=== PATIENT | male | born 1945 | race Caucasian/White ===

== ENCOUNTER 2017-08-09 07:54 | Emergency (ER) | payer MEDICARE, OTHER ==
[2017-08-09] MEDS ORDERED: Lidocaine 2% 20 ML MDV INFILT ONE (07:55)
[2017-08-09] MEDS ORDERED: Diphtheria,Pertussis(Acell),Tetanus Vaccine 0.5 ML SDV IM ONE (08:35)
[2017-08-09] MEDS ORDERED: Cephalexin 500 MG Cap PO ONE (08:35)
--- NOTE | 2017-08-09 08:38 | EDM.PDOC ---
ED HPI GENERAL MEDICAL PROBLEM - General Chief Complaint: Laceration Stated Complaint: RT THUMB Time Seen by Provider: 08/09/17 08:00 Source of Information: Reports: Patient History Limitations: Reports: No Limitations - History of Present Illness INITIAL COMMENTS - FREE TEXT/NARRATIVE: 72 y.o.w.m came to the ed after he injured hid r thumb at work ith a tool. Wound was initially bleeding. Pt did not loose any function, no N/V/D or any other acute medical issues. BP 137/67 pulse 76 Temp 36.8 Pulse ox 97% on RA Onset: Today Onset Date: 08/09/17 Onset Time: 06:00 Duration: Hour(s): Location: Reports: Upper Extremity, Right Quality: Reports: Ache Severity: Mild Improves with: Reports: Rest Worsens with: Reports: Movement Context: Reports: Trauma Right Pain Score (Numeric/FACES): 3 - Related Data Allergies Allergy/AdvReac Type Severity Reaction Status Date / Time No Known Allergies Allergy Verified 08/09/17 08:08 Home Meds: Home Meds Cephalexin [Keflex] 500 mg PO Q6HR #40 capsule 08/09/17 [Rx] Social & Family History - Tobacco Use Smoking Status *Q: Current Every Day Smoker Years of Tobacco use: 1 Packs/Tins Daily: 1 - Alcohol Use Number of Drinks Per Day: 3 - Recreational Drug Use Recreational Drug Use: No ED ROS GENERAL - Review of Systems Review Of Systems: See Below Constitutional: Reports: No Symptoms HEENT: Reports: No Symptoms Respiratory: Reports: No Symptoms Cardiovascular: Reports: No Symptoms Endocrine: Reports: No Symptoms GI/Abdominal: Reports: No Symptoms : Reports: No Symptoms Musculoskeletal: Reports: No Symptoms Skin: Reports: Wound (right thumb) Neurological: Reports: No Symptoms Psychiatric: Reports: No Symptoms Hematologic/Lymphatic: Reports: No Symptoms Immunologic: Reports: No Symptoms ED EXAM, SKIN/RASH Exam: See Below Exam Limited By: No Limitations General Appearance: Alert, WD/WN, Mild Distress Eye Exam: Bilateral Eye: Normal Inspection Ears: Normal External Exam Nose: Normal Inspection Throat/Mouth: Normal Inspection, Normal Lips Head: Atraumatic, Normocephalic Neck: Normal Inspection Respiratory/Chest: No Respiratory Distress, Lungs Clear, Normal Breath Sounds, No Accessory Muscle Use, Chest Non-Tender Cardiovascular: Normal Peripheral Pulses, Regular Rate, Rhythm, No Edema, No Gallop, No Murmur Peripheral Pulses: 1+: Radial (L) GI/Abdominal: Normal Bowel Sounds, Soft, Non-Tender (Male) Exam: Deferred Rectal (Males) Exam: Deferred Back Exam: Normal Inspection, Full Range of Motion Extremities: Normal Inspection, Normal Range of Motion, Non-Tender Neurological: Alert, Oriented, CN II-XII Intact, Normal Cognition, Normal Gait Psychiatric: Normal Affect, Normal Mood Skin: Wound/Incision (right thumb) Location, Skin: Upper Extremity, Right Lymphatic: No Adenopathy ED SKIN PROCEDURES - Laceration/Wound Repair Right Finger Lac/Wound length In cm: 3 (right thumb) Appearance: Superficial, Stellate, Irregular, Clean Distal NVT: Neuro & Vascular Intact, No Tendon Injury Anesthetic Type: Local Local Anesthesia - Lidocaine (Xylocaine): 2% Plain Local Anesthetic Volume: 3cc Skin Prep: Providone-Iodine (Betadine) Saline Irrigation (cc's): 5 Exploration/Debridement/Repair: Wound Explored, In a Bloodless Field, Explored to Base Closed with: Sutures Suture Size: 4-0 # of Sutures: 7 Suture Type: Interrupted Tetanus Status Addressed: Other (TD today) Complications: No Course - Vital Signs Text/Narrative:: 72 y.o.w.m came to the ed after he injured hid r thumb at work ith a tool. Wound was initially bleeding. Pt did not loose any function, no N/V/D or any other acute medical issues. BP 137/67 pulse 76 Temp 36.8 Pulse ox 97% on RA PE: Right thumb LAC Procedure: Please see not obove Impression: Right thumb LAC Tx: Wound repair, Keflex Reexam: Improved Plan: D/C with instructions Last Recorded V/S: Last Vital Signs Temp Pulse 78 08/09/17 08:00 Resp 16 08/09/17 08:00 BP 137/67 08/09/17 08:00 Pulse Ox 100 08/09/17 08:00 - Orders/Labs/Meds Orders: Active Orders 24 hr Category Date Time Status Vaccines to be Administered [RC] PER UNIT ROUTINE Care 08/09/17 08:36 Ordered Meds: Medications Discontinued Medications Generic Name Dose Route Start Last Admin Trade Name Freq PRN Reason Stop Dose Admin Cephalexin 500 mg 08/09/17 08:35 Keflex PO 08/09/17 08:36 ONETIME ONE Diphtheria/Tetanus/Acell Pertussis 0.5 ml 08/09/17 08:35 08/09/17 08:42 Adacel IM 08/09/17 08:36 0.5 ml .ONCE ONE Administration Departure - Departure Time of Disposition: 08:38 Disposition: Home, Self-Care 01 Condition: Good Clinical Impression: Laceration - Discharge Information Prescriptions: Cephalexin [Keflex] 500 mg PO Q6HR #40 capsule Referrals: Carlos A Sweeney MD [Primary Care Provider] - Forms: ED Department Discharge Additional Instructions: Please apply neosporoine to wound two time for 5 days, Keflex as recommended, wound check in 2 days suture removal in 1o days, please come back to the ed if your symptoms get worse acutely. - My Orders Last 24 Hours: My Active Orders 08/09/17 08:36 Vaccines to be Administered [RC] PER UNIT ROUTINE - Assessment/Plan Last 24 Hours: My Active Orders 08/09/17 08:36 Vaccines to be Administered [RC] PER UNIT ROUTINE
== END 2017-08-09 09:02 | disposition home or self-care (01) ==
LOC: FB.ED 07:54
DX: S61.011A Laceration without foreign body of right thumb without damage to nail, initial encounter (principal); F17.210 Nicotine dependence, cigarettes, uncomplicated; W27.8XXA Contact with other nonpowered hand tool, initial encounter; Y99.0 Civilian activity done for income or pay; Z23 Encounter for immunization
CPT/HCPCS: 12002; 90471; 90715; 99283; A9270

== ENCOUNTER 2020-02-14 07:51 | Day surgery (SDC) | payer MEDICARE, OTHER ==
[2020-02-14] MEDS ORDERED: Lidocaine 1% PF 2 ML SDV INJECT ONE (07:52)
[2020-02-14] MEDS ORDERED: Propofol 200 MG/20 ML SDV IV ONE (07:52)
[2020-02-14] MEDS ORDERED: Sodium Chloride 0.9% 10 ML Syringe FLUSH PRN (08:00)
[2020-02-14] MEDS: Lactated Ringers 1,000 ML IV SCH (08:00)
--- NOTE | 2020-02-14 09:36 | PCM.OPNOTE ---
- General Post-Op/Procedure Note Date of Surgery/Procedure: 02/14/20 Operative Procedure(s): c scope with hot loop snare, cold forcep biopys. tattoo of polyp base Findings: transverse colon polyp x2 (1 and 2 cm) rectal polyp x2 (0.5 and 1 cm) Pre Op Diagnosis: hematochezia Post-Op Diagnosis: transverse colon polyp x2 (1 and 2 cm). rectal polyp x2 (0.5 and 1 cm) Anesthesia Technique: MAC Primary Surgeon: Ayad Jarvis Anesthesia Provider: Miguel Angel Cartwright Pathology: transverse colon polyp x2 (1 and 2 cm) rectal polyp x2 (0.5 and 1 cm) Complications: None Condition: Good Free Text/Narrative:: see dicatation
--- NOTE | 2020-02-18 11:12 | OR ---
DATE OF OPERATION: 02/14/2020 SURGEON: Ayad Jarvis MD PROCEDURE PERFORMED: Colonoscopy with hot loop and cold snare biopsy as well as tattooing of biopsy site. PREOPERATIVE DIAGNOSIS: Bright red blood per rectum. POSTOPERATIVE DIAGNOSIS: Transverse colon polyps x2, rectal polyps x2, diverticulosis. INDICATIONS FOR PROCEDURE: This is a 74-year-old white male who has never had a colonoscopy, was referred with a history of some bright red blood per rectum, was offered and accepted colonoscopy. DESCRIPTION OF OPERATION: After an excellent IV sedation was administered, digital rectal exam was performed. No marked abnormality was noted. The flexible colonoscope was inserted and advanced to the cecum. The prep was excellent. Following findings were noted: Ascending colon, unremarkable. Transverse colon, in the mid transverse colon, 2 polyps, one approximately 8 mm in size and the other approximately 2 mm with a wide base were encountered. These were both biopsied with the hot loop snare. The base of the larger polyp was due to its size was tattooed with the Spot system. Remainder of the transverse colon was unremarkable. Descending colon, occasional diverticula. Sigmoid, mild diverticulosis. Rectum, 2 polyps biopsied with cold forceps and submitted in one container. The patient tolerated the procedure well. Results will be sent to him via letter. /[id number] /MODL
== END 2020-02-14 10:22 | disposition home or self-care (01) ==
LOC: FB.SDS 07:51
PROVIDERS: ATTEND Surgery
DX: K63.5 Polyp of colon (principal); K62.1 Rectal polyp; K57.31 Diverticulosis of large intestine without perforation or abscess with bleeding; Z79.899 Other long term (current) drug therapy
CPT/HCPCS: 00811-QZ; 88305; J2001; J2704; J7120

== ENCOUNTER 2021-10-11 21:53 | Emergency (ER) | payer MEDICARE ==
[2021-10-11] MEDS ORDERED: Pantoprazole 40 MG Vial IVPUSH ONE (22:31)
[2021-10-11] MEDS ORDERED: Alum Hydroxide/Mag Hydroxide 15 ML, Lidocaine 2% 15 ML PO ONE ×2 (22:32)
[2021-10-11] MEDS ORDERED: Aspirin 81 MG Tab.Chew PO ONE (22:35)
== END 2021-10-12 01:10 ==
LOC: FB.ED 21:53
DX: I49.9 Cardiac arrhythmia, unspecified (principal); I45.5 Other specified heart block
CPT/HCPCS: 36415; 80053; 84484; 85025; 93005; 96374; 99284; 99285-25; A9270-GY; C9113